=== PATIENT | male | born 1975 | race African-American/Black ===

== ENCOUNTER 2017-08-08 11:46 | Emergency (ER) | payer OTHER ==
[~2017-08-08] VITALS: Ht 167.6 cm; Wt 49.9 kg
[2017-08-08 12:00] VITALS: BP_SYST 134
[2017-08-08] MEDS ORDERED: DOCU-144 PO (13:46)
[2017-08-08] MEDS ORDERED: MULT PO (13:46)
[2017-08-08] MEDS ORDERED: HAL5 PO (13:46)
[2017-08-08] MEDS ORDERED: SENN-153 PO (13:46)
[2017-08-08] MEDS ORDERED: MAGNESIUM CITRATE 300 ML ORAL SOLUTION PO ONE (14:00)
[2017-08-08 15:28] LABS: BILIRUBIN,URINE NEGATIVE (NEGATIVE); BLOOD, URINE NEGATIVE (NEGATIVE); CLARITY/URINE CLEAR (CLEAR); COLOR,URINE YELLOW (YELLOW); GLUCOSE,URINE NEGATIVE (NEGATIVE); KETONES,URINE NEGATIVE (NEGATIVE); LEUKOCYTE ESTERASE ,URINE NEGATIVE (NEGATIVE); NITRITE, URINE NEGATIVE (NEGATIVE); PH,URINE 6.5 (5.0-8.0); PROTEIN URINE NEGATIVE (NEGATIVE); UROBILINOGEN,URINE 0.2 (0.2-1.0)
[2017-08-08 15:43] LABS: BARBITURATE, URINE NEGATIVE (NEG <=200); BENZODIAZEPINE, URINE NEGATIVE (NEG <=150); CANNABINOID, URINE POSITIVE (NEG <=50); COCAINE, URINE NEGATIVE (NEG <=150); METHAMPHETAMINES SCREEN,URINE NEGATIVE (NEG <=500); OPIATE, URINE NEGATIVE (NEG <=100); PHENCYCLIDINE SCREEN,URINE NEGATIVE (NEG <=25); UR TRICYCLIC ANTIDEPRESSANTS NEGATIVE (NEG <=300); URINE AMPHETAMINE NEGATIVE (NEG <=500); URINE METHADONE NEGATIVE (NEG <=200); URINE OXYCODONE SCREEN NEGATIVE (NEG <=100); URINE PROPOXYPHENE SCREEN NEGATIVE (NEG <=300)
[2017-08-08 16:40] VITALS: BP_SYST 120
[2017-08-08] MEDS ORDERED: MAGNESIUM CITRATE 300 ML ORAL SOLUTION ONE (16:45)
== END 2017-08-08 14:29 | disposition left against medical advice (07) ==
LOC: SED 11:46
DX: K62.89 Other specified diseases of anus and rectum (principal); K59.00 Constipation, unspecified; K62.3 Rectal prolapse; F20.9 Schizophrenia, unspecified; G82.20 Paraplegia, unspecified
CPT/HCPCS: 71045; 74018; 80307; 81003; 93005; 99285